=== PATIENT | female | born 1980 | race Two or more races ===

== ENCOUNTER 2022-04-19 09:07 | Outpatient (CLI) | payer OTHER | END 2022-04-19 09:17 | disposition home or self-care (01) | LOC: MAMO-SONO 09:07 | PROVIDERS: ATTEND Obstetrics & Gynecology | DX: Z12.31 Encounter for screening mammogram for malignant neoplasm of breast (principal); N60.11 Diffuse cystic mastopathy of right breast ==

== ENCOUNTER 2022-12-08 07:24 | Day surgery (SDC) | payer OTHER | END 2022-12-08 17:15 | disposition home or self-care (01) | LOC: CIR.AMB 07:24 | PROVIDERS: ATTEND Obstetrics & Gynecology | DX: N84.0 Polyp of corpus uteri (principal); Z20.822 Contact with and (suspected) exposure to COVID-19 ==

== ENCOUNTER 2023-06-02 07:34 | Outpatient (CLI) | payer OTHER | END 2023-06-02 07:45 | disposition home or self-care (01) | LOC: MAMO-SONO 07:34 | PROVIDERS: ATTEND Obstetrics & Gynecology | DX: N60.11 Diffuse cystic mastopathy of right breast (principal); Z12.31 Encounter for screening mammogram for malignant neoplasm of breast ==